=== PATIENT | male | born 1960 | race Caucasian/White ===

== ENCOUNTER → 2016-08-15 | Outpatient (REF) | payer BC | LOC: M SFHCPLAZ 12:06 | PROVIDERS: ATTEND Family Medicine | DX: R35.0 Frequency of micturition (principal) | CPT/HCPCS: 36415; G0103 ==

== ENCOUNTER → 2016-09-29 | Outpatient (REF) | payer BC | LOC: M SFHCPLAZ 10:37 | PROVIDERS: ATTEND Family Medicine | DX: R79.89 Other specified abnormal findings of blood chemistry (principal) ==

== ENCOUNTER → 2017-05-16 | Outpatient (REF) | payer BC | LOC: M SFHCPLAZ 12:28 | DX: D36.10 Benign neoplasm of peripheral nerves and autonomic nervous system, unspecified (principal) | CPT/HCPCS: 88305 ==

== ENCOUNTER → 2017-08-08 | Outpatient (CLI) | payer BC | LOC: M RAD 07:37 | DX: N18.3 Chronic kidney disease, stage 3 (moderate) (principal); E55.9 Vitamin D deficiency, unspecified; N28.1 Cyst of kidney, acquired | CPT/HCPCS: 78707 ==

== ENCOUNTER → 2018-02-08 | Outpatient (REF) | payer BC ==
[2018-02-08 18:04] LABS: BASO # 0.1 10^3/uL (0.0-0.2); BASO % 0.7 % (0.0-1.0); EOS # 0.1 10^3/uL (0.0-0.50); HEMATOCRIT 43.9 % (42.0-52.0); HEMOGLOBIN 14.7 g/dl (13.5-17.5); IMMATURE GRANULOCYTE % 0.1 % (0-3.0); LYMPH # 1.8 10^3/uL (1.5-4.5); LYMPH % 24.5 % (24.0-44.0); MEAN CORPUSCULAR HEMOGLOBIN 31.2 pg (27.0-33.0); MEAN CORPUSCULAR HGB CONC 33.5 g/dl (32.0-36.5); MEAN CORPUSCULAR VOLUME 93.2 fl (80.0-96.0); MONO # 0.6 10^3/uL (0.0-0.8); MONO % 8.2 % (0.0-5.0); NEUTROPHILS # 4.7 10^3/uL (1.8-7.7); NEUTROPHILS % 65.5 % (36.0-66.0); PLATELET COUNT, AUTOMATED 213 10^3/uL (150-450); RED BLOOD COUNT 4.71 10^6/uL (4.30-6.10); RED CELL DISTRIBUTION WIDTH 11.6 % (11.5-14.5); WHITE BLOOD COUNT 7.2 10^3/uL (4.0-10.0)
[2018-02-08 18:15] LABS: INR 0.97
[2018-02-08 18:16] LABS: PARTIAL THROMBOPLASTIN TIME 29.3 SECONDS (25.4-37.6)
[2018-02-08 18:17] LABS: ALBUMIN 4.2 GM/DL (3.2-5.2); ALBUMIN/GLOBULIN RATIO 1.35 (1.00-1.93); ALKALINE PHOSPHATASE 97 U/L (45-117); ALT/SGPT 34 U/L (12-78); ANION GAP 7 MEQ/L (8-16); AST/SGOT 26 U/L (7-37); BILIRUBIN,TOTAL 0.6 MG/DL (0.2-1.0); BLOOD UREA NITROGEN 16 MG/DL (7-18); CALCIUM LEVEL 9.4 MG/DL (8.5-10.1); CARBON DIOXIDE LEVEL 30 MEQ/L (21-32); CHLORIDE LEVEL 101 MEQ/L (98-107); CREATININE FOR GFR 1.38 MG/DL (0.70-1.30); GLOMERULAR FILTRATION RATE 56.5 (>56); GLUCOSE, FASTING 88 MG/DL (70-100); POTASSIUM SERUM 4.6 MEQ/L (3.5-5.1); SODIUM LEVEL 138 MEQ/L (136-145); TOTAL PROTEIN 7.3 GM/DL (6.4-8.2)
[2018-02-08 18:19] LABS: VITAMIN B12 LEVEL 521 PG/ML (247-911)
== END ==
LOC: M SFHCPLAZ 15:11
DX: N18.2 Chronic kidney disease, stage 2 (mild) (principal)
CPT/HCPCS: 84443

== ENCOUNTER → 2019-01-09 | Outpatient (REF) | payer BC ==
[2019-01-09 18:07] LABS: CALCIUM LEVEL 9.3 MG/DL (8.5-10.1); CREATININE FOR GFR 1.43 MG/DL (0.70-1.30); GLOMERULAR FILTRATION RATE 54.1 (>56); POTASSIUM SERUM 4.6 MEQ/L (3.5-5.1)
== END ==
LOC: M SFHCPLAZ 15:05
PROVIDERS: ATTEND Family Medicine
DX: N18.2 Chronic kidney disease, stage 2 (mild) (principal); Z12.5 Encounter for screening for malignant neoplasm of prostate
CPT/HCPCS: 36415; 80048; G0103

== ENCOUNTER → 2019-05-07 | Outpatient (REF) | payer BC | LOC: M SFHCPLAZ 09:18 | PROVIDERS: ATTEND Family Medicine | DX: Z53.9 Procedure and treatment not carried out, unspecified reason (principal) ==

== ENCOUNTER → 2019-08-11 | Outpatient (CLI) | payer BC ==
[~2019-08-11] MED LIST: CIAL5TAB PO; FLOM0.4C39 PO; VITA50005 PO
== END ==
LOC: M LABSMTC 10:51
PROVIDERS: ATTEND Anesthesiology
DX: Z01.818 Encounter for other preprocedural examination (principal); Z11.59 Encounter for screening for other viral diseases
CPT/HCPCS: C9803; U0002

== ENCOUNTER 2019-08-13 11:25 | Day surgery (SDC) | payer BC ==
[~2019-08-13] VITALS: Ht 185.4 cm; Wt 91.2 kg
[~2019-08-13 11:25] MED LIST changes: +LIDOCAINE 2% 100MG/5ML SDV (FOR ANES.) As Ordered ONE; +propofoL 200 MG/20 ML VIAL As Ordered ONE
[2019-08-13] MEDS: NS 1,000 ML IV SCH (11:45)
--- NOTE | 2019-08-13 12:41 | ROOR ---
Patient Name: Jose Angel Woodson Procedure Date: 08/13/2019 12:19 PM Date of : 1960 Age: 59 Room: [facility] Gender: Male Note Status: Finalized Procedure: Total Colonoscopy to Cecum Indications: Screening for colorectal malignant neoplasm Providers: Chapo Obrien MD Referring MD: Dane Parker Do Requesting Provider: Medicines: Monitored Anesthesia Care Complications: No immediate complications. Procedure: Pre-Anesthesia Assessment: - The heart rate, respiratory rate, oxygen saturations, blood pressure, adequacy of pulmonary ventilation, and response to care were monitored throughout the procedure. The Colonoscope was introduced through the anus and advanced to the cecum, identified by appendiceal orifice and ileocecal valve. The colonoscopy was performed without difficulty. The patient tolerated the procedure well. The quality of the bowel preparation was good. Findings: The perianal and digital rectal examinations were normal. Non-bleeding internal hemorrhoids were found during retroflexion. The hemorrhoids were small and Grade I (internal hemorrhoids that do not prolapse). No other significant abnormalities were identified in a careful examination of the remainder of the colon. The exam was otherwise without abnormality on direct and retroflexion views. Impression: - Non-bleeding internal hemorrhoids. - The examination was otherwise normal on direct and retroflexion views. - No specimens collected. - The exam was otherwise normal to the cecum. Recommendation: - Patient has a contact number available for emergencies. The signs and symptoms of potential delayed complications were discussed with the patient. Return to normal activities tomorrow. Written discharge instructions were provided to the patient. - High fiber diet. - Discharge patient to home. - Continue present medications. - Repeat colonoscopy in 10 years for screening purposes. - Return to referring physician. - The findings and recommendations were discussed with the patient's family. Chapo Obrien MD Chapo Obrien MD 08/13/2019 12:41:33 PM Electronically signed by Chapo Obrien MD Number of Addenda: 0 Note Initiated On: 08/13/2019 12:19 PM Estimated Blood Loss: Estimated blood loss: none.
[2019-08-13 13:00] VITALS: BP 129/76
== END 2019-08-13 13:15 | disposition home or self-care (01) ==
LOC: M OPP 11:25
PROVIDERS: ATTEND Internal Medicine Gastroenterology
DX: Z12.11 Encounter for screening for malignant neoplasm of colon (principal); K64.0 First degree hemorrhoids; Z87.891 Personal history of nicotine dependence

== ENCOUNTER → 2021-04-15 | Outpatient (CLI) | payer BC ==
[~2021-04-15] MED LIST changes: +ERGO500029 PO; -LIDOCAINE 2% 100MG/5ML SDV (FOR ANES.) As Ordered ONE; -VITA50005 PO; -propofoL 200 MG/20 ML VIAL As Ordered ONE
[2021-04-15 11:03] LABS: HEMOGLOBIN A1c 4.9 %
[2021-04-15 11:16] LABS: ALBUMIN 3.9 GM/DL (3.2-5.2); CALCIUM LEVEL 9.2 MG/DL (8.8-10.2); CHOLESTEROL RISK RATIO 2.6 (<5); CREATININE FOR GFR 1.33 MG/DL (0.70-1.30); GLOMERULAR FILTRATION RATE 58.4 (>49); POTASSIUM SERUM 5.4 MEQ/L (3.5-5.1)
== END ==
LOC: M PLALAB 09:01
PROVIDERS: ATTEND Family Medicine
DX: N18.31 Chronic kidney disease, stage 3a (principal); Z13.220 Encounter for screening for lipoid disorders

== ENCOUNTER → 2021-04-18 | Outpatient (CLI) | payer BC ==
[2021-04-18 14:40] LABS: CALCIUM LEVEL 9.7 MG/DL (8.8-10.2); CREATININE FOR GFR 1.32 MG/DL (0.70-1.30); GLOMERULAR FILTRATION RATE 58.9 (>49); MAGNESIUM LEVEL 2.3 MG/DL (1.8-2.4); POTASSIUM SERUM 5.1 MEQ/L (3.5-5.1)
== END ==
LOC: M PLALAB 11:39
PROVIDERS: ATTEND Family Medicine
DX: E87.5 Hyperkalemia (principal)

== ENCOUNTER 2021-05-03 18:23 | Emergency (ER) | payer BC ==
[~2021-05-03] VITALS: Ht 185.4 cm; Wt 98.3 kg
[2021-05-03] MEDS ORDERED: PROPARACAINE 0.5% OPHTH SOL 15ML OU ONE (19:15)
[2021-05-03] MEDS ORDERED: FLUORESCEIN OPHTH 1 MG STRIP OU ONE (19:15)
[2021-05-03 20:01] VITALS: BP 132/73
== END 2021-05-03 20:19 | disposition home or self-care (01) ==
LOC: M ED 18:23
DX: H53.9 Unspecified visual disturbance (principal); N40.0 Benign prostatic hyperplasia without lower urinary tract symptoms; Z79.899 Other long term (current) drug therapy

== ENCOUNTER → 2022-05-24 | Outpatient (CLI) | payer BC ==
[2022-05-24 16:08] LABS: BASO # 0.1 10^3/uL (0.0-0.2); BASO % 1.2 % (0.0-1.0); EOS # 0.1 10^3/uL (0.0-0.5); EOS % 1.4 % (0.0-3.0); HEMATOCRIT 45.1 % (42.0-52.0); LYMPH # 1.5 10^3/uL (1.5-5.0); LYMPH % 26.1 % (24.0-44.0); MEAN CORPUSCULAR HEMOGLOBIN 31.2 pg (27.0-33.0); MEAN CORPUSCULAR HGB CONC 33.3 g/dl (32.0-36.5); MEAN CORPUSCULAR VOLUME 93.8 fl (80.0-96.0); MONO # 0.7 10^3/uL (0.0-0.8); NEUTROPHILS # 3.3 10^3/uL (1.5-8.5); NEUTROPHILS % 58.9 % (36.0-66.0); PLATELET COUNT, AUTOMATED 217 10^3/uL (150-450); RED BLOOD COUNT 4.81 10^6/uL (4.30-6.10); WHITE BLOOD COUNT 5.7 10^3/uL (4.0-10.0)
[2022-05-24 16:10] LABS: CALCIUM LEVEL 9.5 MG/DL (8.3-10.6); CHOLESTEROL RISK RATIO 3.09 (<5); CREATININE FOR GFR 1.3 MG/DL (0.70-1.30); GLOMERULAR FILTRATION RATE 59.7 (>49); HDL CHOLESTEROL 52.7 MG/DL (>40); LDL CHOLESTEROL 88.5 MG/DL (<100); POTASSIUM SERUM 4.7 MMOL/L (3.5-5.1)
[2022-05-24 16:39] LABS: CREATININE, URINE 74.1 MG/DL
== END ==
LOC: M PLALAB 11:07
PROVIDERS: ATTEND Student in an Organized Health Care Education/Training Program
DX: Z00.00 Encounter for general adult medical examination without abnormal findings (principal)

== ENCOUNTER → 2022-09-12 | Outpatient (REF) | payer BC | LOC: M LAB REF 17:29 | PROVIDERS: ATTEND Nurse Practitioner Family | DX: N18.31 Chronic kidney disease, stage 3a (principal) ==

== ENCOUNTER → 2023-05-31 | Outpatient (CLI) | payer BC ==
[2023-05-31 17:33] LABS: CHOLESTEROL RISK RATIO 3.16 (<5); HDL CHOLESTEROL 50.5 MG/DL (>40); LDL CHOLESTEROL 84.3 MG/DL (<100); NON-HDL-C 109.5 MG/DL
[2023-05-31 17:38] LABS: HEMOGLOBIN A1c 5.1 % (4.0-6.0)
== END ==
LOC: M PLALAB 15:23
PROVIDERS: ATTEND Student in an Organized Health Care Education/Training Program
DX: Z00.00 Encounter for general adult medical examination without abnormal findings (principal)

== ENCOUNTER 2024-01-02 13:09 | Day surgery (SDC) | payer BC ==
[~2024-01-02] VITALS: Ht 185.4 cm; Wt 98.6 kg
[~2024-01-02 13:09] MED LIST changes: +FINA5TAB2 PO; +NS 250 ML IV ONE; +OMEP-173 PO
[2024-01-02] MEDS ORDERED: LIDOCAINE 2% 100MG/5ML SDV (FOR ANES.) As Ordered ONE (13:47)
[2024-01-02] MEDS ORDERED: propofoL 200 MG/20 ML VIAL As Ordered ONE (13:47)
[2024-01-02] MEDS ORDERED: fentaNYL 100 MCG/2 ML INJECTION As Ordered ONE (15:29)
[2024-01-02 15:44] VITALS: TEMP 98.1
[2024-01-02 16:01] VITALS: BP 127/81; O2SAT 97
== END 2024-01-02 16:15 | disposition home or self-care (01) ==
LOC: M OPP 13:09
PROVIDERS: ATTEND Internal Medicine Gastroenterology
DX: K29.50 Unspecified chronic gastritis without bleeding (principal); K44.9 Diaphragmatic hernia without obstruction or gangrene; K22.89 Other specified disease of esophagus; R12 Heartburn; N40.0 Benign prostatic hyperplasia without lower urinary tract symptoms; E89.2 Postprocedural hypoparathyroidism; Z79.899 Other long term (current) drug therapy; Z90.49 Acquired absence of other specified parts of digestive tract; Z90.89 Acquired absence of other organs
CPT/HCPCS: 43239; 88305; J3010

== ENCOUNTER → 2024-03-05 | Outpatient (CLI) | payer BC ==
[~2024-03-05] MED LIST changes: -NS 250 ML IV ONE
== END ==
LOC: M SOG 07:51
PROVIDERS: ATTEND Physician Assistant
DX: M79.645 Pain in left finger(s) (principal)